=== PATIENT | male | born 1955 | race Caucasian/White ===

== ENCOUNTER 2017-03-28 04:38 | Observation (INO) | payer BC ==
[~2017-03-28] VITALS: Ht 177.8 cm; Wt 90.3 kg
[2017-03-28] VITALS (9 sets, daily range): BP systolic 109–164; BP diastolic 70–94
[2017-03-28] MEDS ORDERED: LEVOTHYROXIN0.137 M1 PO (04:48)
[2017-03-28] MEDS ORDERED: SIMVASTATIN40 MG PO (04:49)
[2017-03-28] MEDS ORDERED: METFORMIN 500M500 M1 PO (04:49)
--- OUTSIDE RECORDS SUMMARY | 2017-03-28 04:49 | External Medical Summary Rpt ---
Author Author [employer], [employer] Organization [employer] Address Unknown Phone Unavailable
--- OUTSIDE RECORDS SUMMARY | 2017-03-28 04:49 | External Medical Summary Rpt ---
Author Author [employer] Organization [employer] Address Unknown Phone Unavailable Purpose Continuity of Care Document - through 2016
--- OUTSIDE RECORDS SUMMARY | 2017-03-28 04:49 | External Medical Summary Rpt ---
Author Author , Organization [employer] Address Unknown Phone Unavailable Purpose Continuity of Care Document - through 2016
[2017-03-28 04:55] LABS: HEMOGLOBIN 13.9 g/dL (14.1-18.0); LYMPH # 2.7 K/mm3 (0.7-4.5); LYMPH % 33.6 % (10-50)
[2017-03-28 05:19] LABS: BUN 11 mg/dL (7-18)
[2017-03-28 05:36] LABS: GFR (ESTIMATED) 76 ML/MIN (>60)
--- NOTE | 2017-03-28 05:50 | Emergency Room Report ---
History of Present Illness Time Seen by [id number] Presenting Problem in Triage Pt arrived:Walked Presenting Problem:C/O CHEST PAIN LEFT SIDED. WAS SHARP IN NATURE INITIALLY WHEN AWAKENED FROM SLEEP. 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 N Clinical Suspician of Infection? N Mental Status: 1 - Regular (Normal Baseline) Sepsis Risk:Low Sepsis Risk Have you (or family members/close friends) recently traveled outside the [place]? N If Yes, where/when: Have you had exposure to infectious disease within the past month? TB? Other? Specify: Source patient, RN notes reviewed, family, old records Exam Limitations no limitations Comment awaken with sharp lt sided chest pain at 0330 - pt with no known ht disease and presented for eval Cardiac Chest Pain Chest pain indicative of cardiac Yes Timing/Duration 1-3 hours, gone now Severity/Quality moderate, sharp Location central Chest Pain Radiation no radiation Activities at Onset sleeping Nitro Today/Relief 0.4 mg x 1, provided by ED, complete relief Aspirin Treatment Today 325 mg x 1, provided by ED Beta josette treatment today no beta josette taken Cardiac risk factors Elevated lipids, Diabetes, + family history Prior Workup/Intervention no prior cardiac workup Timing/Duration this morning Severity moderate ALLERGIES Coded Allergies: Penicillins (03/28/17) Home Medications Reported Medications Levothyroxine Sodium (Levothyroxine 0.137MG) 0.137 MG PO DAILY #90 Metformin HCl (Metformin) 500 MG PO BID #90 Simvastatin (Simvastatin 40MG Tab) 40 MG PO DAILY #90 History Medical History General CAD? No Angina: No [place]: No Hypertension? No Hyperlipidemia? Yes CHF? No DVT? No PE? No COPD? No Asthma? No Anemia? No GERD? Yes Gastric ulcers? No GI Bleed? No Hernia? Yes Thyroid Problems? Yes Hypothyroidism? Yes CVA? No Seizures? No Diabetes? Yes Insulin Dependent: No Insulin Pump: No Home FSBS? No Renal Insuffiency? No End Stage Renal Disease? No UTI? No Stones? No BPH? No GB Disease: No Nephritic Syndrome? No Asplenia? No Hepatitis? No Sickle Cell Disease? No Arthritis? No Migraines? No Cataracts? No Glaucoma? No MRSA? No HIV? No TB? No Anxiety? No Depression? No Cancer? No Immunization Hx DT/Tetanus Unknown Surgical Hx Previous Surgery?Y HERNIA REPAIR Social History Smoking Hx Smoker: Never Smoker Tobacco: No Alcohol Alcohol: No Drugs none Review of Systems All Other Systems Reviewed and Negative Constitutional denies fever Eyes denies drainage ENT denies: ear discharge, epistaxis, throat pain. Respiratory denies cough, denies shortness of breath, denies wheezing Cardiovascular see HPI, chest pain, denies palpitations, denies syncope Gastrointestinal denies abdominal pain, denies diarrhea, denies vomiting Genitourinary denies: dysuria, frequency, hesitancy, hematuria. Musculoskeletal denies back pain, denies joint pain, denies joint swelling, denies neck pain Skin denies rash Psychiatric/Neurological denies headache, denies seizure Physical Exam Vital Signs Vital Signs Date Time Temp Pulse Resp B/P Pulse O2 O2 Flow FiO2 Ox Delivery Rate 03/28 0555 97.7 79 20 131/81 97 03/28 0510 97.7 78 20 124/81 95 06/20 0440 97.7 88 20 164/94 95 - WBC >12,000 or <4,000 or 10% bands? 2 or more SIRS Criteria Met? B/P:124/81 MAP:117 Creatinine >2.0? UA output<0.5ml/kg/hr for 2 hrs? Platelet count >100,000? Lactate >2.0mmol/1? INR >1.2 or PTT > than 60 sec? Evidence of Organ Dysfunction? Provider documented clinical suspician of infection? N Sepsis Criteria Count: 1 Sepsis Risk: Low Sepsis Risk General Appearance no apparent distress Eye Exam - bilateral eye PERRL, bilateral eye EOMI Ear, Nose, Throat normal ENT inspection Neck supple Respiratory Status No: respiratory distress. Lung Sounds bilateral: lungs clear. 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 No Results/Orders Laboratory Tests 03/28/17 0450: Sodium 140, Potassium 3.9, Chloride 104, Carbon Dioxide 27, BUN 11, Creatinine 1.0, Estimated Creat Clear 96, Estimated GFR (MDRD) 76, Glucose 103, Calcium 9.2 , Total Bilirubin 0.8, AST 13 L, ALT 31, Alkaline Phosphatase 110, Creatine Kinase 109, CK-MB (CK-2) Rel Index 0.5, CK and CKMB Interp < 0.5, Troponin I < 0.02, Total Protein 8.1, Albumin 3.9, Globulin 4.2 H, Albumin/Globulin Ratio 0.9 L, WBC 8.0, RBC 5.20, Hgb 13.9 L, Hct 43.2, MCV 83.1, RDW 13.4, Plt Count 313, MPV 7.1 L, Gran % 53.7, Gran # 4.3, Lymphocytes % 33.6, Monocytes % 7.4, Eosinophils % 4.5, Basophils % 0.8, Lymphocytes # 2.7, Monocytes # 0.6, Eosinophils # 0.4, Basophils # 0.1, PUBS MCHC 32.1, MCH 26.7 L Current Medication Orders Sig/Aspen Start time Last Medication Dose Route Stop Time Status Admin Nitroglycerin 1 IN ONCE ONE 03/28 0600 AC 03/28 TP 03/28 0601 0552 Nitroglycerin 0 .STK-MED ONE 03/28 0550 DC .ROUTE Aspirin 324 MG ONCE ONE 03/28 0500 DC 03/28 PO 03/28 0501 0449 Nitroglycerin 0.4 MG ONCE ONE 03/28 0500 DC 03/28 PO 03/28 0501 0449 Sodium Chloride 10 ML PRN PRN 03/28 0500 AC IV 03/29 0447 Nitroglycerin 0 .STK-MED ONE 03/28 0446 DC SL Aspirin 0 .STK-MED ONE 03/28 0445 DC .ROUTE Orders Procedure Date/time Status Decision to admit 03/28 0552 Active ELECTROCARDIOGRAM REQUEST 03/28 448 Active CHEST(2 VIEWS-NOT PORTABLE) 03/28 448 Active IV SALINE LOCK 03/28 448 Active COMPLETE METABOLIC PANEL 03/28 448 Complete CBC WITH AUTO DIFF 03/28 448 Complete CARDIAC ENZYMES 03/28 448 Complete 12 LEAD EKG-JOSE L (INITIAL) 03/28 UNK Active CM/EKG CM/offset lithographic press operator Rhythm Normal Sinus Rhythm EKG non-spec. ST/Twave chgs XRAY/CT/US XRAY/CT/US XRAY chest XR interpretation by reviewed by me Xray Results abnormal (cm) Departure Departure Time of Disposition 0549 Disposition Still a Patient Clinical Impression Primary Impression: Chest pain Qualifiers: Chest pain type: precordial pain Qualified Code: R07.2 - Precordial pain Condition STABLE Referrals Lara Gandhi MD (Family) discussed with dr gandhi ED Critical Care Critical Care No at 0526
--- OUTSIDE RECORDS SUMMARY | 2017-03-28 05:59 | External Medical Summary Rpt ---
Demographics Preferred Language Slovenian Marital Status Unknown Taoism Affiliation Unknown Race Unknown Ethnic Group Unknown Author Author , Organization [employer] Address Unknown Phone Unavailable Purpose Continuity of Care Document - through 2016 Immunization No patient found.
--- OUTSIDE RECORDS SUMMARY | 2017-03-28 05:59 | External Medical Summary Rpt ---
Demographics Preferred Language Central African Marital Status Unknown Baptism Affiliation Unknown Race Unknown Ethnic Group Unknown Author Author , Organization [employer] Address Unknown Phone Unavailable Purpose Continuity of Care Document - through 2016 Immunization No patient found.
--- OUTSIDE RECORDS SUMMARY | 2017-03-28 05:59 | External Medical Summary Rpt ---
Author Author , Organization [employer] Address Unknown Phone Unavailable Purpose Continuity of Care Document - 03-28-2017 through 2016
--- OUTSIDE RECORDS SUMMARY | 2017-03-28 06:00 | External Medical Summary Rpt ---
Author Author [employer], [employer] Organization [employer] Address Unknown Phone Unavailable Results CBC W Auto Differential panel in Blood Observa Value Referen Units Interpr Notes Date tion ce etation Range Basophils 0 - 0.2 K/MM3 Normal No Mar 20 informati 2017 4:50 [#/volume on in AM ] in source Blood by data Automated count Basophils 0.1 - 2.0 % Normal No Alexis 20 /100 informati 2017 4:50 leukocyte on in AM s in source Blood by data Automated count Eosinophi 0.0 - 0.4 K/mm3 Normal No Mar 20 ls informati 2017 4:50 [#/volume on in AM ] in source Blood by data Automated count Eosinophi 0.1 - % Normal No Mar 20 ls/100 12.0 informati 2017 4:50 leukocyte on in AM s in source Blood by data Automated count Granulocy 1.3 - 8.0 K/mm3 Normal No Mar 20 naty informati 2017 4:50 [#/volume on in AM ] in source Blood by data Automated count Granulocy 37.0 - % Normal No Mar 20 naty/100 80.0 informati 2017 4:50 leukocyte on in AM s in source Blood by data Automated count Hematocri 42.0 - % Normal No Mar 20 t [Volume 52.0 informati 2017 4:50 on in AM Fraction] source of Blood data Hemoglobi 14.1 - g/dL Low No Mar 20 n 18.0 informati 2017 4:50 [Mass/vol on in AM ume] in source Blood data Lymphocyt 0.7 - 4.5 K/mm3 Normal No Mar 20 es informati 2017 4:50 [#/volume on in AM ] in source Unspecifi data ed specimen by Automated count Lymphocyt 10 - 50 % Normal No Mar 20 es informati 2017 4:50 [#/volume on in AM ] in source Unspecifi data ed specimen by Automated count Erythrocy 27 - 31.2 pg Low No Mar 20 te mean informati 2017 4:50 corpuscul on in AM ar source hemoglobi data n [Entitic mass] Erythrocy 31.8 - g/dl Normal No Mar 28 te mean 35.4 informati 2017 4:50 corpuscul on in AM ar source hemoglobi data n concentra tion [Mass/vol ume] by Automated count Erythrocy 82.2 - fl Normal No Mar 20 te mean 97.8 informati 2017 4:50 corpuscul on in AM ar volume source [Entitic data volume] by Automated count Monocytes 0.1 - 1.0 K/mm3 Normal No Mar 20 informati 2017 4:50 [#/volume on in AM ] in source Blood by data Automated count Monocytes 1.7 - 9.3 % Normal No Mar 20 /100 informati 2017 4:50 leukocyte on in AM s in source Blood by data Automated count Platelet 7.4 - fl Low No Mar 28 mean 10.4 informati 2017 4:50 volume on in AM [Entitic source volume] data in Blood by Automated count Platelets 142 - 424 K/mm3 Normal No Mar 20 informati 2017 4:50 [#/volume on in AM ] in source Blood data Erythrocy 4.6 - 6.2 M/mm3 Normal No Mar 20 naty informati 2017 4:50 [#/volume on in AM ] in source Amniotic data fluid Erythrocy 11.5 - % Normal No Mar 20 te 17.5 informati 2017 4:50 distribut on in AM ion width source [Entitic data volume] by Automated count Leukocyte 4.8 - K/MM3 Normal No Mar 20 s 10.8 informati 2016 4:50 [#/volume on in AM ] in source Blood data
--- NOTE | 2017-03-28 07:14 | PHARMACY CLINIC NOTE ---
Patient Demographics Patient Demographics Admission date: 03/28/17 Date: 03/28/17 Time: 0714 Allergies Coded Allergies: Penicillins (03/28/17) HEIGHT- FT: 5 IN: 10.00 K.323 VTE General Information Labs: Laboratory Tests 03/28 0450 Hematology Hgb (14.1 - 18.0 g/dL) 13.9 L Hct (42.0 - 52.0 %) 43.2 Plt Count (142 - 424 K/mm3) 313 Disclaimer The following section includes nursing documentation that has been pulled in for pharmacy review. Patient's VTE score: 2 Patient's VTE Risk: VERY LOW RISK Clinical trial participant? No VTE prophylaxis [id number] VTE prophylaxis ordered? Yes Type of prophylaxis/treatment: ISAAC at 0714
--- NOTE | 2017-03-28 07:55 | CONSULT NOTE ---
See Addendum Standard Demographics Patient Demo Date of Consultation: 03/28/17 Referring Provider: Marilin Livingston MD Reason for Consultation: Chest pain PRIMARY DIAGNOSIS: CHEST PAIN Problem list Problem list: 1. DM, treated for one year 2. Hyperlipidemia, on statin for about 3 yrs 3. FH of ASHD in father with first RI at age 48 (heavy smoker) 4. reflux 5. Hypothyroidism History of present illness: History of present illness: 61-year-old white male with hyperlipidemia and diabetes presented to the emergency department this morning due to recurrent substernal left-sided stabbing type chest pain. Symptoms would last less than 30 seconds without aggravating factors. Denies any nausea, vomiting, diarrhea or diaphoresis. No recent fever or chills. No recent exertional symptoms. He denies any previous cardiac history. After taking Tums at home with no relief patient came to the emergency department for evaluation. He was given sublingual nitroglycerin with relief. Initial troponin is normal electrocardiogram is sinus without acute ST segment changes. Cardiology consulted for further evaluation. Patient does relate symptoms of reflux and adds that patient does complain of difficulty swallowing at times. Past Medical History: General: Hypertension No CVA No Seizures No TB No COPD No Asthma No Diabetes Yes Insulin Dependent No Insulin Pump No Angina No RI No Hyperlipidemia Yes Cancer No MRSA No GB Disease No Past Surgical HX: Previous Surgery?Y HERNIA REPAIR Allergies Coded Allergies: Penicillins (03/28/17) Home medications: Reported Medications Metformin HCl (Metformin) 500 MG PO DAILY #90 TAB Levothyroxine Sodium (Levothyroxine 0.137MG) 0.137 MG PO DAILY #90 Simvastatin (Simvastatin 40MG Tab) 40 MG PO DAILY #90 Current Medications: Current Medications Pravastatin Sodium 40 MG QHS PO Nitroglycerin 1 IN Q8 TP Levothyroxine Sodium 0.137 MG DAILY PO Sodium Chloride 10 ML PRN PRN IV Diagnostic Test (Pha) 1 EACH W/MEALS&HS FS Insulin Human [rDNA origin] SEE ADMIN CRITERIA FOR LOW INTENSITY SS W/MEALS&HS SC Acetaminophen 650 MG Q4HP PRN PO Nitroglycerin 1 IN ONCE ONE TP (DC) Ondansetron HCl 4 MG Q6HP PRN IV Sodium Chloride 1,000 ML .Q20H IV Nitroglycerin 0 .STK-MED ONE .ROUTE (DC) Aspirin 324 MG ONCE ONE PO (DC) Nitroglycerin 0.4 MG ONCE ONE PO (DC) Sodium Chloride 10 ML PRN PRN IV Nitroglycerin 0 .STK-MED ONE SL (DC) Aspirin 0 .STK-MED ONE .ROUTE (DC) Immunization HX DT/Tetanus Unknown Pneumonia Never Had TB Test in last year No Family history Family HX Family Hx Insignificant No Diabetes No CAD Yes Hypertension No Hyperlipidemia Yes Cancer Yes TB No Social Hx: Smoking HX Tobacco No Alcohol Alcohol: No Hx of Drug Use Drug Use? No Patien't marital status is Patient's support system is good Review of systems: Constitutional No: no symptoms reported. Respiratory No: no symptoms reported. Cardiovascular see HPI, chest pain Gastrointestinal/Abdominal see HPI Genitourinary No: no symptoms reported. Musculoskeletal No: no symptoms reported. Neurological No: no symptoms reported. Exam: Admission Vital Signs: 1ST Vital Signs Result Date Time Pulse Ox 95 03/28 0440 B/P 164/94 03/28 0440 Temp 97.7 03/28 0440 Pulse 88 03/28 0440 Resp 20 03/28 0440 O2 Delivery ROOM AIR 03/28 0614 Last Vital Signs: Vital Signs Result Date Time Pulse Ox 96 03/28 0625 B/P 129/88 03/28 0625 O2 Delivery ROOM AIR 03/28 0625 Temp 97.4 03/28 0625 Pulse 74 03/28 0625 Resp 22 03/28 0625 Exam General appearance: alert, awake, no acute distress Neck: no carotid bruit, no JVD Cardiovascular: regular rate & rhythm Respiratory: clear to auscultation ABD: soft, no tenderness Extremities: moves all, no peripheral edema Neuro: alert, intact, oriented Laboratory data: Laboratory Tests 03/28/17 0700: Creatine Kinase 101, CK-MB (CK-2) Rel Index 0.5, CK and CKMB Interp < 0.5, Troponin I < 0.02 03/28/17 0450: Sodium 140, Potassium 3.9, Chloride 104, Carbon Dioxide 27, BUN 11, Creatinine 1.0, Estimated Creat Clear 96, Estimated GFR (MDRD) 76, Glucose 103, Calcium 9.2 , Total Bilirubin 0.8, AST 13 L, ALT 31, Alkaline Phosphatase 110, Creatine Kinase 109, CK-MB (CK-2) Rel Index 0.5, CK and CKMB Interp < 0.5, Troponin I < 0.02, Total Protein 8.1, Albumin 3.9, Globulin 4.2 H, Albumin/Globulin Ratio 0.9 L, WBC 8.0, RBC 5.20, Hgb 13.9 L, Hct 43.2, MCV 83.1, RDW 13.4, Plt Count 313, MPV 7.1 L, Gran % 53.7, Gran # 4.3, Lymphocytes % 33.6, Monocytes % 7.4, Eosinophils % 4.5, Basophils % 0.8, Lymphocytes # 2.7, Monocytes # 0.6, Eosinophils # 0.4, Basophils # 0.1, PUBS MCHC 32.1, MCH 26.7 L Plan: Assessment: 1. Chest pain. MAKENZIE score of 2 (recurrent chest pain, risk factors) 2. Diabetes mellitus 3. Hyperlipidemia 4. Family history coronary disease in his father who was a heavy smoker Recommendations: 1. Echocardiogram has been ordered and performed this morning and results pending. 2. With normal troponins 2 and unremarkable electrocardiogram, recommend proceeding with exercise Myoview today. at 3018
--- NOTE | 2017-03-28 08:24 | RADIOLOGY REPORT PS360 ---
CHEST(2 VIEWS-NOT PORTABLE) COMPARISON: None HISTORY: Chest pain TECHNIQUE: PA and lateral chest FINDINGS: The lung anaya are well expanded and appear clear of infiltrate. There is apbs-ax-ohlnbuja generalized cardiomegaly without evidence of failure. There is no pleural fluid. The bony thorax is normal for age. IMPRESSION: Mild to moderate cardio megaly, no acute chest pathology noted
--- NOTE | 2017-03-28 08:24 | RADIOLOGY REPORT PS360 ---
CHEST(2 VIEWS-NOT PORTABLE) COMPARISON: None HISTORY: Chest pain TECHNIQUE: PA and lateral chest FINDINGS: The lung anaya are well expanded and appear clear of infiltrate. There is nnch-el-rwewslsy generalized cardiomegaly without evidence of failure. There is no pleural fluid. The bony thorax is normal for age. IMPRESSION: Mild to moderate cardio megaly, no acute chest pathology noted
--- NOTE | 2017-03-28 09:01 | HISTORY AND PHYSICAL REPORT ---
See Addendum History and Physical ([facility]) Date of admission: 03/28/17 Chief complaint: Chest pain History: History of Present Illness: History of present illness: Mr Saunders is a 61-year-old white male with a history of hyperlipidemia and diabetes who presented to the emergency department this morning due to recurrent substernal left-sided stabbing type chest pain. Symptoms would last less than 30 seconds without aggravating factors. He denies any nausea, vomiting, diarrhea or diaphoresis,, palpitations or SOB. He has had no cough or recent fever or chills and No recent exertional symptoms. He denies any previous cardiac history. After taking Tums at home with no relief patient presented to the emergency department for evaluation. He was given sublingual nitroglycerin with relief. Troponin's have been normal and electrocardiogram is sinus without acute ST segment changes. Patient does have periodic reflux and adds that patient does complain of difficulty swallowing at times. This AM patient remains pain free. He has been seen by cardiology and a stress test will be done this AM. Past Medical History: Medical History: CAD? No Angina: No MT: No Hypertension? No Hyperlipidemia? Yes CHF? No DVT? No PE? No COPD? No Asthma? No Anemia? No GERD? Yes Gastric ulcers? No GI Bleed? No Hernia? Yes Thyroid Problems? Yes Hypothyroidism? Yes CVA? No Seizures? No Diabetes? Yes Insulin Dependent: No Insulin Pump: No Home FSBS? No Renal Insuffiency? No UTI? No Stones? No BPH? No GB Disease: No Nephritic Syndrome? No Asplenia? No Hepatitis? No Sickle Cell Disease? No Arthritis? No Migraines? No Cataracts? No Glaucoma? No MRSA? No HIV? No TB? No Anxiety? No Depression? No Cancer? No Additional medical history: Last TSH in A 06/2016 was 0.36 and synthroid was decreased; A1C was 5.7; LDL was 110 with HDL of 41 and TG 152 Surgical history: Previous Surgery?Y HERNIA REPAIR Medications: Reported Medications Metformin HCl (Metformin) 500 MG PO DAILY #90 TAB Levothyroxine Sodium (Levothyroxine 0.137MG) 0.137 MG PO DAILY #90 Simvastatin (Simvastatin 40MG Tab) 40 MG PO DAILY #90 Allergies: Coded Allergies: Penicillins (03/28/17) Family History: Family history: Postive for: CAD, HTN, cancer. Social History: Smoking Hx Tobacco: No Smoker: Never Smoker Type: N/A Packs/day: N/A Are you exposed to second hand No Alcohol: Alcohol: No Hx of Drug Use: Drug Use? No Patien't marital status is: Patient's support system is: excellent Review of Systems: Constitutional No: chills, fatigue, weak. ENT No: ear ache, sore throat. Cardiovascular Positive for: chest pain. No: edema, palpitations. Respiratory No: shortness of air, non-productive, productive cough (sputum). GI Positive for: GERD. No: abdominal pain, constipation, diarrhea, hematemeis, hematochezia, melena, nausea, vomitting. (male) No: frequency, hematuria. Neurological No: dizziness, headache, seizure, syncope, weakness. Musculoskeletal No: extremity pain, joint pain. Physical Exam: Vital signs: 1ST Vital Signs Result Date Time Pulse Ox 95 03/28 0440 B/P 164/94 03/28 044 Temp 97.7 03/28 0440 Pulse 88 03/28 0440 Resp 20 03/28 0440 O2 Delivery ROOM AIR 03/28 0614 Exam: General appearance: alert, active, no acute distress, well-developed, well- nourished Eyes: anicteric, pupils reactive to light ENT: mucous membranes moist, pharynx normal Neck: non-tender, no carotid bruit, full range of motion, supple, lymphadenopathy (absent), thyroid (normal) Cardiovascular: regular rate & rhythm Respiratory: clear to auscultation (bilat anterior and posterior) Extremities: no peripheral edema, pedal pulses (present), no calf tenderness, no pedal edema Neuro: alert, oriented, speech clear Lab data: Labs: Laboratory Tests 03/28/17 0700: Creatine Kinase 101, CK-MB (CK-2) Rel Index 0.5, CK and CKMB Interp < 0.5, Troponin I < 0.02 03/28/17 0450: Sodium 140, Potassium 3.9, Chloride 104, Carbon Dioxide 27, BUN 11, Creatinine 1.0, Estimated Creat Clear 96, Estimated GFR (MDRD) 76, Glucose 103, Calcium 9.2 , Total Bilirubin 0.8, AST 13 L, ALT 31, Alkaline Phosphatase 110, Creatine Kinase 109, CK-MB (CK-2) Rel Index 0.5, CK and CKMB Interp < 0.5, Troponin I < 0.02, Total Protein 8.1, Albumin 3.9, Globulin 4.2 H, Albumin/Globulin Ratio 0.9 L, WBC 8.0, RBC 5.20, Hgb 13.9 L, Hct 43.2, MCV 83.1, RDW 13.4, Plt Count 313, MPV 7.1 L, Gran % 53.7, Gran # 4.3, Lymphocytes % 33.6, Monocytes % 7.4, Eosinophils % 4.5, Basophils % 0.8, Lymphocytes # 2.7, Monocytes # 0.6, Eosinophils # 0.4, Basophils # 0.1, PUBS MCHC 32.1, MCH 26.7 L Radiology results: Results: CXR 03/28/17 IMPRESSION: Mild to moderate cardio megaly, no acute chest pathology noted Diagnosis(es): 1. Chest pain 2. Hyperlipidemia 3. GERD (gastroesophageal reflux disease) Plan: Has been seen by cardiology; Troponin's normal x2; will add TSH; Exercise Myoview this AM; ECHO at 0937 at 1145
--- NOTE | 2017-03-28 15:02 | RADIOLOGY REPORT PS360 ---
SPECT MYOCARDIAL PERFUSION SCAN, REST AND STRESS: EXERCISE STRESS: [facility] REVIEW QGS EF AND WALL MOTION EVALUATION: QPS - PERFUSION EVALUATION: HISTORY: Chest pain PROCEDURE: Rest imaging performed after administration of10.52 millicuries Tc MIBI. Dose administered at10:40 a.m., with imaging thereafter. Stress imaging was then performed following9 minutes of exercise stress. The patient achieved a heart [id number] with projected heart rate of134 . Resting BP132/74 with stress 160/84. At maximum exercise stress,31.8 millicuries Tc MIBI administered at12:10 p.m. with minutes thereafter. FINDINGS: Perfusion Evaluation: The single slice spect images as well as the [facility] bull's-eye data summary were reviewed. Wall Motion and Ejection Fraction Evaluation: Gated SPECT review and analysis used to evaluate these features. There is a 50 % left ventricular ejection fraction. There seems to be good wall motion SPECT images: Stress images reveal decreased activity in the apex and mildly decreased in the inferior wall while rest images reveal improved activity in the apex as well as the inferior wall. Gated images calculated ejection fraction of 50% with normal wall motion IMPRESSION: Inferior apical ischemia with normal ejection fraction normal wall motion. This is at least a moderate risk stress test
--- NOTE | 2017-03-28 15:02 | RADIOLOGY REPORT PS360 ---
SPECT MYOCARDIAL PERFUSION SCAN, REST AND STRESS: EXERCISE STRESS: [facility] REVIEW QGS EF AND WALL MOTION EVALUATION: QPS - PERFUSION EVALUATION: HISTORY: Chest pain PROCEDURE: Rest imaging performed after administration of10.52 millicuries Tc MIBI. Dose administered at10:40 a.m., with imaging thereafter. Stress imaging was then performed following9 minutes of exercise stress. The patient achieved a heart [id number] with projected heart rate of134 . Resting BP132/74 with stress 160/84. At maximum exercise stress,31.8 millicuries Tc MIBI administered at12:10 p.m. with [id number] minutes thereafter. FINDINGS: Perfusion Evaluation: The single slice spect images as well as the [facility] bull's-eye data summary were reviewed. Wall Motion and Ejection Fraction Evaluation: Gated SPECT review and analysis used to evaluate these features. There is a 50 % left ventricular ejection fraction. There seems to be good wall motion SPECT images: Stress images reveal decreased activity in the apex and mildly decreased in the inferior wall while rest images reveal improved activity in the apex as well as the inferior wall. Gated images calculated ejection fraction of 50% with normal wall motion IMPRESSION: Inferior apical ischemia with normal ejection fraction normal wall motion. This is at least a moderate risk stress test
--- NOTE | 2017-03-28 18:14 | RADIOLOGY REPORT PS360 ---
PROCEDURE: 2-D M-mode and color Doppler study INDICATIONS FOR THE TEST: Chest pain X COPD Heart Murmur Tobacco Smoking Palpitations Fatigue Syncope Edema Hypertension Diabetes MellitusX Rheumatic Fever SOB WEBB Obesity HyperlipidemiaX Family History HD Additional History PATIENT INFORMATION HEIGHT: 70 WEIGHT:195 GENDER: Male B/P:129/88 2-D/M-MODE INTERPRETATION: 2-D MEASUREMENTS OBSERVED VALUES IN CMS Right Ventricular Dimension (RVDd) 2.5 Interventricular Septum (Thickness)(IVsd) 1.1 Left Ventricular Internal Dimensions(LVIDd) 5.1 Left Ventricular Posterior Wall (Thickness)(LVPWd) 1.1 Aortic Root 3.0 Aortic Cusp Separation 1.5 Left Atrial Dimensions (LAD) 3.9 2D 1. Left atrium is qualitatively mildly enlarged, the left ventricle is normal size, left ventricle wall thickness is upper limit of the normal, there is preserved left ventricular systolic function, visually estimated ejection fraction of 55% with no obvious regional wall motion abnormality. 2. The right atrium is mildly enlarged, right ventricle is mildly enlarged with normal contractility. 3. The aortic valve is minimally thickened and fibrosed. 4. The mitral and tricuspid valve are structurally normal. 5. The pulmonic valve is not well visualized. 6. There is no significant pericardial effusion noted. DOPPLER INTERROGATION: Doppler interrogation of the aortic mitral and tricuspid valvular presence of mild mitral and tricuspid regurgitation, tricuspid regurgitant jet velocity insufficient for calculation of the right ventricular systolic pressure, grade 1 diastolic dysfunction seen without tissue Doppler evidence of raised left atrial pressure. CONCLUSION: 1. Mildly enlarged left atrium, normal left ventricular size, preserved left ventricular systolic function, visually estimated ejection fraction of 55% with no obvious regional wall motion abnormality, grade 1 diastolic dysfunction seen without tissue Doppler evidence of raised left atrial pressure. 2. Mildly enlarged right ventricle with normal contractility. 3. Mild mitral and tricuspid regurgitation. 4. No significant pericardial effusion noted.
[2017-03-29] VITALS (14 sets, daily range): BP systolic 103–146; BP diastolic 57–96
[2017-03-29 06:29] LABS: HEMOGLOBIN 13.7 g/dL (14.1-18.0); LYMPH # 2.3 K/mm3 (0.7-4.5); LYMPH % 27.8 % (10-50)
--- NOTE | 2017-03-29 08:27 | ACUTE CARE PROGRESS NOTE (QUA) ---
Progress Notes Subjective Date 03/29/17 Time 0817 Note Mr Saunders denies chest pain this morning. He is currently NPO for a heart cath procedure. He was able to get some sleep overnight. He has been voiding, no BM at this point. He was eating without problems. Headache reported yesterday that has resolved. Ambulating to the bathroom with no problems. Objective Findings Laboratory Tests 03/29/17 0643: POC Glucose 91 03/29/17 0600: Sodium 140, Potassium 4.0, Chloride 105, Carbon Dioxide 28, BUN 13, Creatinine 0.9, Estimated Creat Clear 109, Estimated GFR (MDRD) 86, Glucose 101, Calcium 9.4, WBC 8.2, RBC 5.20, Hgb 13.7 L, Hct 42.3, MCV 81.4 L, RDW 13.2, Plt Count 285, MPV 6.9 L, Gran % 59.5, Gran # 4.9, Lymphocytes % 27.8, Monocytes % 7.4, Eosinophils % 4.4, Basophils % 0.9, Lymphocytes # 2.3, Monocytes # 0.6, Eosinophils # 0.4, Basophils # 0.1, PUBS MCHC 32.4, MCH 26.4 L 03/28/17 2038: POC Glucose 104 03/28/17 1620: POC Glucose 93 03/28/17 1314: POC Glucose 80 03/28/17 0950: Creatine Kinase 88, CK-MB (CK-2) Rel Index 0.6, CK and CKMB Interp < 0.5, Troponin I < 0.02 Vital Signs Date Time Temp Pulse Resp B/P Pulse O2 O2 Flow FiO2 Ox Delivery Rate 03/29 0756 98.1 80 18 143/71 95 03/29 0350 98.1 80 18 143/71 95 ROOM AIR 03/28 2348 97.9 81 16 160/81 98 ROOM AIR 03/28 2040 97.7 83 18 134/87 94 03/28 1941 97.7 83 18 134/87 94 ROOM AIR 03/28 1600 98.0 86 20 150/92 96 ROOM AIR 03/28 0824 97.6 73 22 109/70 94 Current Medications Acetaminophen 650 MG Q4HP PRN PO Albuterol 2.5 MG ONCE ONE INH (CAN) Aspirin 0 .STK-MED ONE .ROUTE (DC) Aspirin 0 .STK-MED ONE .ROUTE (DC) Aspirin 0 .STK-MED ONE .ROUTE (DC) Aspirin 81 MG DAILY PO (CKD) Diagnostic Test (Pha) 1 EACH W/MEALS&HS FS Fentanyl Citrate 25 MCG PRN PRN IV Fentanyl Citrate 50 MCG PRN PRN IV Flumazenil 0.2 MG PRN PRN IV Heparin Sodium (Beef Lung) 5,000 UNITS PRN PRN IV Heparin Sodium/Sodium Chloride 3,000 UNITS PRN PRN IV Insulin Human [rDNA origin] SEE ADMIN CRITERIA FOR LOW INTENSITY SS W/MEALS&HS SC Levothyroxine Sodium 0.137 MG DAILY PO Lidocaine HCl 20 ML ONCE ONE IJ (DC) Midazolam HCl 1 MG PRN PRN IV Midazolam HCl 1 MG PRN PRN IV Miscellaneous 1 DOSE ONCE ONE IV (DC) Miscellaneous 1 DOSE ONCE ONE IV (DC) Naloxone HCl 0.4 MG [id number] PRN IV Nitroglycerin 800 MCG PRN PRN IV Ondansetron HCl 4 MG Q6HP PRN IV Pravastatin Sodium 40 MG QHS PO Sodium Chloride 1,000 ML .STK-MED ONE IV (DC) Sodium Chloride 10 ML PRN PRN IV (DC) Sodium Chloride 10 ML PRN PRN IV (DC) Sodium Chloride 10 ML ONCE ONE IV (DC) Sodium Chloride 10 ML ONCE ONE IV (DC) Sodium Chloride 10 ML PRN PRN IV Sodium Chloride 1,000 ML .Q20H IV Sodium Chloride 10 ML PRN PRN IV (DC) Ticagrelor 90 MG BID PO Ticagrelor 180 MG ONCE ONE PO (DC) Verapamil HCl 5 MG PRN PRN IV 03/28 1500 03/28 2300 / 0700 Intake Total 951 Output Total Balance 951 Intake, IV 471 Intake, Oral 480 Last VS-Temp:98.1 B/P:143/71 Pulse:80 Resp:18 SaO2:95 ROOM AIR Last weight lbs:199 oz:2 K.323 Method:Bed Scales Cardiolyte Stress Test IMPRESSION: Inferior apical ischemia with normal ejection fraction normal wall motion. This is at least a moderate risk stress test ECHO CONCLUSION: 1. Mildly enlarged left atrium, normal left ventricular size, preserved left ventricular systolic function, visually estimated ejection fraction of 55% with no obvious regional wall motion abnormality, grade 1 diastolic dysfunction seen without tissue Doppler evidence of raised left atrial pressure. 2. Mildly enlarged right ventricle with normal contractility. 3. Mild mitral and tricuspid regurgitation. 4. No significant pericardial effusion noted. Exam General appearance: alert, awake, no acute distress ENT: mucous membranes moist Neck: no carotid bruit, no JVD, supple Cardiovascular: regular rate & rhythm, no murmur, normal peripheral pulses, no peripheral edema Respiratory: clear to auscultation (bilat anterior and posterior) ABD: soft, aortic bruit (absent), bowel sounds present Extremities: normal capillary refill, no peripheral edema, warm, no calf tenderness, hair growth absent in lower calf, shiney appearance Skin: intact, normal color, warm Neuro: alert, normal mood/affect, oriented, speech clear Assessment/Plan Problem List 1. Chest pain 2. Hyperlipidemia 3. GERD (gastroesophageal reflux disease) Patient condition Stable Plan: continue current care, cardiac cath this am This inpt stay is expected to cross 2 MNs from start of care Yes at 0872
--- NOTE | 2017-03-29 11:44 | RADIOLOGY REPORT PS360 ---
CARDIAC CATHETERIZATION DATE OF CATHETERIZATION:03/29/2017 9:49 AM PROCEDURES: 1. Left heart catheterization 2. Left ventriculogram 3. Selective coronary angiogram INDICATION FOR TEST: 1. Abnormal Myoview 2. Risk factors for coronary artery disease 3. Angina pectoris Informed consent was obtained prior to the procedure. COMPLICATIONS: None ESTIMATED BLOOD LOSS: Less than 10 ml. TECHNIQUE: One percent lidocaine used to anesthetize the right anterior aspect of the wrist. The right radial artery was accessed via the Seldinger technique. A 6 [place] sheath was placed in the right radial artery. 2.5 mg of verapamil, 800 mcg of nitroglycerin and 5000 U Heparin were given through the arterial sheath. The Carolyn catheter was also used to perform left heart catheterization and left ventriculography. At the end of the procedure the patient was transferred to the post-op holding area in stable condition for arterial sheath removal. ANGIOGRAPHIC RESULTS: 1. The left main artery normal 2. The left anterior descending artery has a proximal concentric hazy 30% stenosis followed by a mid vessel mild myocardial bridge causing 30% systolic compression. The first diagonal artery is a 2.25 mm moderate to large vessel which has proximal 40 followed by an additional 40-50% stenosis 3. The circumflex artery is nondominant yet still a large vessel with an eccentric 10-20% stenosis which then gives rise to 2 large obtuse marginal arteries. 4. The right coronary artery is a dominant vessel and has a proximal 20% followed by an additional eccentric 30% stenosis 15 6-mm proximal to the RV marginal branch. At the junction of the marginal branch is an eccentric 30% plaque which then creates an 80% ostial stenosis in the RV marginal branch. Distally the vessel is normal 5. The YARBROUGH ventriculogram reveals 65% 6. The left ventricular end-diastolic pressure 5 mmHg IMPRESSION: 1. Mild to moderate coronary artery disease as described above 2. 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 Normal ejection fraction 4. Normal left ventricular end-diastolic pressure PLAN: 1. Patient requires very aggressive risk factor modification 2. LDL less than 70 3. Baby aspirin daily 4. Cardiac rehabilitation 5. Tight control of diabetes
[2017-03-29] MEDS ORDERED: CRESTOR40 MG PO (16:41)
--- NOTE | 2017-03-30 15:18 | DISCHARGE SUMMARY STANDARD ---
Discharge Summary (FCA2) Date of admission: 03/28/17 Date of discharge: 03/29/17 Problem List: 1. Coronary artery disease 2. Chest pain 3. Hyperlipidemia 4. GERD (gastroesophageal reflux disease) History of present illness: Mr Saunders is a 61-year-old white male with a history of hyperlipidemia and diabetes who presented to the emergency department due to recurrent substernal left-sided stabbing type chest pain. Symptoms would last less than 30 seconds without aggravating factors. He denied any nausea, vomiting, diarrhea or diaphoresis, palpitations or SOB. He had had no cough or recent fever or chills and no recent exertional symptoms. He denied any previous cardiac history. After taking Tums at home with no relief, patient presented to the emergency department for evaluation. He was given sublingual nitroglycerin with relief. Exam on admission: General appearance: alert, active, no acute distress, well-developed, well- nourished Eyes: anicteric, pupils reactive to light ENT: mucous membranes moist, pharynx normal Neck: non-tender, no carotid bruit, full range of motion, supple, lymphadenopathy (absent), thyroid (normal) Cardiovascular: regular rate & rhythm Respiratory: clear to auscultation (bilat anterior and posterior) Extremities: no peripheral edema, pedal pulses (present), no calf tenderness, no pedal edema Neuro: alert, oriented, speech clear Hospital Course: Troponin's were normal and electrocardiogram showed sinus without acute ST segment changes. Patient was seen by cardiology and a stress test was ordered. It showed late recovery ST segment depression and ischemia on myoview images in the inferior and apical areas. The patient was loaded with brilinta and a heart cath was scheduled. It showed mild-moderate CAD with a normal EF. Cardiology felt the patient would require very aggressive risk factor modification; LDL less than 70, baby aspirin daily, cardiac rehabilitation, and tight control of diabetes. He was stable to be discharged home and f/u with Dr. Livingston in a week. Discharge medications: Stop taking the following medications: Simvastatin (Simvastatin 40MG Tab) 40 MG TABLET ORAL DAILY Qty = 90 Continue taking these medications: Levothyroxine Sodium (Levothyroxine 0.137MG) 137 MCG TABLET 0.137 MILLIGRAM ORAL DAILY Qty = 90 Metformin HCl (Metformin) 500 MG TABLET 500 MILLIGRAM ORAL DAILY Qty = 90 Start taking the following new medications: Rosuvastatin Calcium (Crestor) 40 MG TABLET 40 MILLIGRAM ORAL AT BEDTIME NIGHTLY Qty = 30 Refills = 5 Disposition: F/U with: Lara Livingston MD Follow up: 7 DAYS Activity: Cont Current activity Diet: Continue same diet Discharge to: HOME Agency needed? N at 1997
== END 2017-03-29 18:01 | disposition home or self-care (01) ==
LOC: ER 04:38 → 2ND 05:56
PROVIDERS: Emergency Medicine; Internal Medicine
PROC: B2111ZZ Fluoroscopy of Multiple Coronary Arteries using Low Osmolar Contrast (ICD-10-PCS; 2017-03-29)
PROC: B2151ZZ Fluoroscopy of Left Heart using Low Osmolar Contrast (ICD-10-PCS; 2017-03-29)
PROC: 4A023N7 Measurement of Cardiac Sampling and Pressure, Left Heart, Percutaneous Approach (ICD-10-PCS; principal; 2017-03-29 10:15)
DX: I25.119 Atherosclerotic heart disease of native coronary artery with unspecified angina pectoris (principal); R94.39 Abnormal result of other cardiovascular function study; E11.9 Type 2 diabetes mellitus without complications
CPT/HCPCS: A9502; C1769; G0378; J1644; Q9967